=== PATIENT | female | born 2000 | race Caucasian/White ===

== ENCOUNTER 2020-05-09 13:22 | Emergency (ER) | payer OTHER ==
[~2020-05-09] VITALS: Ht 167.6 cm; Wt 68.0 kg
[2020-05-09] MEDS ORDERED: ADDERALL XR 2525 MG PO (13:48)
[2020-05-09] MEDS ORDERED: KEFLEX500 M1 PO (15:49)
[2020-05-09] MEDS ORDERED: NAPROSYN500 MG PO (15:49)
[2020-05-09 16:01] VITALS: BP 113/74
== END 2020-05-09 16:01 | disposition home or self-care (01) ==
LOC: ER 13:22
DX: L02.01 Cutaneous abscess of face (principal); L03.211 Cellulitis of face; Z79.899 Other long term (current) drug therapy